=== PATIENT | female | born 1945 | race Caucasian/White ===

== ENCOUNTER → 2017-07-21 | Outpatient (CLI) | payer OTHER ==
[~2017-07-21] VITALS: Ht 162.6 cm; Wt 60.8 kg
[2017-07-21] VITALS (10 sets, daily range): BP systolic 119–165; BP diastolic 57–93
[~2017-07-21] MED LIST: CARDIZEM CD120 MG PO; CARVEDILOL12.5 MG PO; CEFDINIR300 MG PO; COREG25 M1 PO; COREG6.25 MG PO; COUMADIN 1MG TAB1 M1 PO; COUMADIN 3 MG TA3 M1 PO; HYDROCHLOROTH12.5 M1 PO; KEFLEX500 MG PO; LISINOPRIL20 MG PO; MEDROLDOSEPACK PO; NORVASC5 MG PO; PLAVIX 300 MG300 M1 PO; PREDNISONE 10 M10 M1 PO
[2017-07-21 08:41] LABS: HEMATOCRIT 42.4 % (37.0-47.0); HEMOGLOBIN 14.6 gm/dL (12.0-15.0); MCH 31.9 pg (26.0-34.0); MCHC 34.3 g/dL (28.0-37.0); MCV 92.9 fL (80.0-100.0); MPV 9.9 fl. (7.2-11.1); RBC 4.57 mil/uL (4.20-5.00); RDW-CV 15.9 % (10.5-14.5); WBC 5.9 thou/uL (4.0-11.0)
[2017-07-21 08:42] LABS: APTT 31.3 Seconds (25.0-31.3); INR 1.5; PROTIME 14.6 Seconds (9.20-11.50)
--- NOTE | 2017-08-13 16:03 | S ---
[place] [address] SURGICAL PATH RPT PROCEDURE Name: JUAN DIEGO DARBY Room: [facility]#: [id number] Admission: 07/21/17 Date of : 49 Discharge: Report #: [id number] Path Case #: [id number] PATHOLOGY REPORT COLLECTION DATE: 07/21/2017 RECEIVED DATE: 07/21/2017 SUBMITTING PHYS: Dr. Sebastian Finley OTHER PHYS: LILI Hammond Dr., Dr. ADDENDUM REPORT (Order Date: 07/28/2017 00:00) ADDENDUM COMMENT: Please see next page for scanned image of report submitted by [facility] marine consultant pathologist, Rickie Burciaga M.D. (TANVI:riri; d/t: 08/13/2017) ELECTRONICALLY SIGNED BY: Edson Lee M.D. DATE/TIME:08/13/2017 16:03 SPECIMEN(S) RECEIVED: A.Liver biopsy * * * * * * * * * * * * FINAL DIAGNOSIS: Liver biopsy: - Benign liver with minimal macrovesicular steatosis (less than 5%), cirrhosis and prominent portal and lobular chronic inflammation. See comment. COMMENT: The biopsies show benign liver with prominent inflammation predominantly within portal tracts and also with periportal and lobular activity. The inflammation consists of predominantly lymphocytes with a few eosinophils. No granulomas and minimal numbers of plasma cells are seen. Focal ductular proliferation is also noted. Properly controlled special stains performed on both A1 and A2 show essentially identical findings in both as follows: Iron - No stainable increase PAS with and without diastase - No globules Reticulin - Hepatic plates intact; supports cirrhosis Trichrome - Bridging fibrosis/cirrhosis. This case will be forwarded to the [facility], Department of Hepatopathology for further assessment and an addendum report will be issued. (TANVI:db; 07/22/2017) [place] [address] SURGICAL PATH RPT PROCEDURE Name: JUAN DIEGO DARBY Room: [facility]#: [id number] Admission: 07/21/17 Date of : 49 Discharge: Report #: [id number] Path Case #: [id number] PATHOLOGIST: Edson Lee M.D. REPORT ELECTRONICALLY SIGNED BY: Edson Lee M.D. DATE/TIME: 07/22/2017 12:51 * * * * * * * * * * * * GROSS PATHOLOGY: The specimen is received in formalin, labeled "Juan Diego Darby, liver biopsy," and consists of 6 needle cores of mix-brown tissue measuring between 1.5 cm to 2.0 cm in length and 0.1 cm in diameter. They are entirely submitted in cassettes A1-A2. (SDY; 07/21/2017) CLINICAL HISTORY: Elevated LFT's, cirrhosis INITIAL CPT CODE(S): A; 89417, 56526, 56051, 65946, 62735, 07225, 69203, 98209, 12302, 86975, 65647 Professional services performed by [facility] at [address] [address] Technical services performed by [facility] at [address] [place] [address], [address], [place] [address]. [facility] [address] [place] [address] PHONE: [phone] DIRECTOR: Darryl Sargent M.D. * * * END OF REPORT * * *
== END | disposition home or self-care (01) ==
LOC: M.LAB 07:30 → M.ULTRA 07:41
PROVIDERS: Family Medicine
DX: K74.60 Unspecified cirrhosis of liver (principal); K73.1 Chronic lobular hepatitis, not elsewhere classified; K76.0 Fatty (change of) liver, not elsewhere classified; I10 Essential (primary) hypertension; I48.91 Unspecified atrial fibrillation; Z98.890 Other specified postprocedural states; Z79.899 Other long term (current) drug therapy; Z79.01 Long term (current) use of anticoagulants; Z87.440 Personal history of urinary (tract) infections

== ENCOUNTER 2017-09-23 10:23 | Emergency (ER) | payer OTHER ==
[~2017-09-23] VITALS: Ht 162.6 cm; Wt 55.3 kg
[~2017-09-23 10:23] MED LIST changes: -CEFDINIR300 MG PO; -COUMADIN 1MG TAB1 M1 PO; -MEDROLDOSEPACK PO; -PREDNISONE 10 M10 M1 PO
[2017-09-23] MEDS ORDERED: PREDNISONE 10 M10 M1 PO (10:37)
[2017-09-23] MEDS ORDERED: CEFDINIR300 MG PO (10:37)
[2017-09-23] MEDS ORDERED: MEDROLDOSEPACK PO (10:37)
[2017-09-23 11:12] LABS: ABSOLUTE LYMPHOCYTES 0.9 thou/uL (0.8-5.3); ABSOLUTE MONOCYTES 0.6 thou/uL (0.0-1.2); ABSOLUTE NEUTROPHILS 6.5 thou/uL (1.6-8.1); BASOPHILS 0.5 %; EOSINOPHILS 0.6 %; HEMATOCRIT 41.9 % (37.0-47.0); HEMOGLOBIN 14.4 gm/dL (12.0-15.0); LYMPHOCYTES 10.6 %; MCH 31.9 pg (26.0-34.0); MCHC 34.4 g/dL (28.0-37.0); MCV 92.5 fL (80.0-100.0); MONOCYTES 7.7 %; MPV 8.2 fl. (7.2-11.1); NUCLEATED RBCS 0 /100WBC; PLATELET COUNT* 149 thou/uL (150-400); POLYS 80.6 %; RBC 4.52 mil/uL (4.20-5.00); RDW-CV 15.2 % (10.5-14.5); WBC 8.1 thou/uL (4.0-11.0)
[2017-09-23 11:21] LABS: APTT 52.5 Seconds (25.0-31.3); PROTIME 91.4 Seconds (9.20-11.50)
[2017-09-23 11:23] LABS: INR 9.8
[2017-09-23 11:30] LABS: CALCIUM 8.6 mg/dL (8.5-10.1); CREATININE 0.7 mg/dL (0.6-1.3); POTASSIUM 3.2 mmol/L (3.5-5.1)
[2017-09-23 11:35] LABS: ALBUMIN 3.1 g/dL (3.4-5.0); TOTAL BILIRUBIN 1.5 mg/dL (<0.1-1.0)
[2017-09-23] MEDS ORDERED: COUMADIN 1MG TAB1 M1 PO (11:54)
[2017-09-23 12:15] VITALS: BP 129/82
== END 2017-09-23 12:16 | disposition home or self-care (01) ==
LOC: M.ERS 10:23
PROVIDERS: Nurse Practitioner Family
DX: R79.1 Abnormal coagulation profile (principal); I10 Essential (primary) hypertension; I48.91 Unspecified atrial fibrillation

== ENCOUNTER → 2018-03-15 | Outpatient (CLI) | payer OTHER ==
[~2018-03-15] MED LIST changes: +CEFDINIR300 MG PO; +COUMADIN 1MG TAB1 M1 PO; +MEDROLDOSEPACK PO; +PREDNISONE 10 M10 M1 PO
[2018-03-15 07:55] LABS: INR 1.6; PROTIME 16.2 Seconds (9.20-11.50)
== END ==
LOC: M.ULTRA 03-08 07:30 → M.LAB 07:24 → M.ULTRA 07:24
PROVIDERS: Internal Medicine Gastroenterology
DX: K74.60 Unspecified cirrhosis of liver (principal); I10 Essential (primary) hypertension; I48.91 Unspecified atrial fibrillation

== ENCOUNTER → 2018-03-17 | Outpatient (CLI) | payer OTHER | LOC: M.ULTRA 10:33 | DX: K74.60 Unspecified cirrhosis of liver (principal); I48.91 Unspecified atrial fibrillation; I10 Essential (primary) hypertension ==

== ENCOUNTER → 2018-06-28 | Outpatient (CLI) | payer OTHER ==
[2018-06-28 14:33] LABS: HEMATOCRIT 40.8 % (37.0-47.0); HEMOGLOBIN 13.8 gm/dL (12.0-15.0); MCH 32.6 pg (26.0-34.0); MCV 95.9 fL (80.0-100.0); MPV 9.3 fl. (7.2-11.1); NUCLEATED RBCS 0 /100WBC; PLATELET COUNT* 98 thou/uL (150-400); RBC 4.25 mil/uL (4.20-5.00); RDW-CV 15.8 % (10.5-14.5); WBC 5.5 thou/uL (4.0-11.0)
[2018-06-28 14:50] LABS: ABSOLUTE BASOPHILS 0.1 thou/uL (0.0-0.2); ABSOLUTE EOSINOPHILS 0.1 thou/uL (0.0-0.7); ABSOLUTE LYMPHOCYTES 1.6 thou/uL (0.8-5.3); ABSOLUTE MONOCYTES 0.5 thou/uL (0.0-1.2); ABSOLUTE NEUTROPHILS 3.2 thou/uL (1.6-8.1); BASOPHILS 1.3 %; EOSINOPHILS 2.7 %; LYMPHOCYTES 28.8 %; MONOCYTES 8.4 %; POLYS 58.8 %
== END ==
LOC: M.LAB 14:08
PROVIDERS: Internal Medicine Cardiovascular Disease
DX: K92.2 Gastrointestinal hemorrhage, unspecified (principal)

== ENCOUNTER 2018-11-12 11:19 | Emergency (ER) | payer OTHER ==
[~2018-11-12] VITALS: Ht 160 cm; Wt 49.4 kg
[2018-11-12] MEDS ORDERED: ELIQUIS2.5 MG PO (11:33)
[2018-11-12] MEDS ORDERED: LASIX 20 MG TAB20 MG PO (11:34)
[2018-11-12] MEDS ORDERED: OMEPRAZOLE40 MG PO (11:34)
[2018-11-12] MEDS ORDERED: SPIRONOLACTONE25 MG PO (11:34)
[2018-11-12] MEDS ORDERED: IRON325 PO (11:35)
[2018-11-12] MEDS ORDERED: XANAX 0.5 MG0.5 MG PO (11:35)
[2018-11-12] MEDS ORDERED: ZINC SULFATE 2220 M1 PO (11:35)
[2018-11-12] MEDS ORDERED: VITAMIN A10000 UNI3 PO (11:36)
[2018-11-12 12:44] LABS: ABSOLUTE EOSINOPHILS 0.1 thou/uL (0.0-0.7); ABSOLUTE LYMPHOCYTES 1.1 thou/uL (0.8-5.3); ABSOLUTE MONOCYTES 0.5 thou/uL (0.0-1.2); ABSOLUTE NEUTROPHILS 2.5 thou/uL (1.6-8.1); BASOPHILS 0.9 %; EOSINOPHILS 2.4 %; HEMATOCRIT 37.4 % (37.0-47.0); HEMOGLOBIN 12.5 gm/dL (12.0-15.0); LYMPHOCYTES 25.7 %; MCH 29.3 pg (26.0-34.0); MCHC 33.4 g/dL (28.0-37.0); MCV 87.6 fL (80.0-100.0); MONOCYTES 11.7 %; MPV 8.7 fl. (7.2-11.1); NUCLEATED RBCS 0 /100WBC; PLATELET COUNT* 116 thou/uL (150-400); POLYS 59.3 %; RBC 4.26 mil/uL (4.20-5.00); RDW-CV 19.8 % (10.5-14.5); WBC 4.2 thou/uL (4.0-11.0)
[2018-11-12 12:54] LABS: ANION GAP 7 mmol/L (7-16); APTT 29.6 Seconds (25.0-31.3); BUN 21 mg/dL (7-18); CALCIUM 9.2 mg/dL (8.5-10.1); CHLORIDE 102 mmol/L (98-107); CO2 25 mmol/L (21-32); CREATININE 1.1 mg/dL (0.6-1.3); GLUCOSE 97 mg/dL (70-99); INR 1.3; POTASSIUM 4.3 mmol/L (3.5-5.1); PROTIME 12.8 Seconds (9.20-11.50); SODIUM 134 mmol/L (136-145)
[2018-11-12 13:05] LABS: ALBUMIN 3.2 g/dL (3.4-5.0); ALKALINE PHOSPHATASE 182 U/L (46-116); LIPASE 214 U/L (73-393); MAGNESIUM 1.8 mg/dL (1.8-2.4); SGOT 62 U/L (15-37); SGPT 55 U/L (30-65); TOTAL PROTEIN 7.5 g/dL (6.4-8.2); TROPONIN-I LEVEL <0.06 ng/mL (<0.06)
[2018-11-12 14:14] LABS: URINE BILIRUBIN NEGATIVE (Negative); URINE BLOOD NEGATIVE (Negative); URINE CLARITY CLEAR; URINE COLOR YELLOW; URINE GLUCOSE-RANDOM NEGATIVE (Negative); URINE KETONES NEGATIVE (Negative); URINE LEUKOCYTES-REFLEX TRACE (Negative); URINE NITRITE-REFLEX NEGATIVE (Negative); URINE PROTEIN NEGATIVE (Negative); URINE SPECIFIC GRAVITY <= 1.005 (1.005-1.030); URINE UROBILINOGEN 0.2 E.U./dl (0.2-1.0)
[2018-11-12 14:21] LABS: SQUAMOUS >10 Many /LPF (0-3); URINE WBC-REFLEX 0-5 Rare /HPF (0-5)
[2018-11-12 14:22] LABS: BACTERIA-REFLEX >30 Many /HPF (None Seen); CASTS None Seen /LPF (None Seen); CRYSTALS None Seen /LPF (None Seen); URINE RBC None Seen /HPF (0-2)
[2018-11-12 14:41] VITALS: BP 139/73
--- NOTE | 2018-11-12 16:40 | EKG ---
[place] [address] ELECTROCARDIOGRAM REPORT Name: JUAN DIEGO CABA Room: [facility]#: [id number] Admission: 11/12/18 Attend Phys: Discharge: 11/12/18 Date of : 49 Report #: [id number] THIS REPORT FOR: //name// [facility] ED Test Date: 2018-11-12 Test Time: 12:35:07 Pat Name: JUAN DIEGO CABA Department: Room: Gender: F Manager Package: OSMAR : 1945 Requested By: Constantin Dodd Order Number: [id number] MD: Christopher Ribeiro Measurements Intervals [place] Rate: 87 P: [place]: QRS: 58 QRSD: 80 T: -36 QT: 380 QTc: 457 Interpretive Statements Atrial fibrillation Nonspecific T abnormalities, inferior leads Compared to ECG 05/20/2017 10:15:30 Possible ischemia no longer present T-wave abnormality still present Electronically Signed On 11-12-2018 16:40:17 CDT by Christopher Ribeiro [email or web address] <ELECTRONICALLY SIGNED> By: Christopher Ribeiro MD, [facility] 11/12/18 1640 [facility]5 1235 Christopher Ribeiro MD, [facility] /EPI
== END 2018-11-12 14:42 | disposition home or self-care (01) ==
LOC: M.ERS 11:19
PROVIDERS: Nurse Practitioner Psychiatric/Mental Health
DX: R51 Headache (principal); R53.1 Weakness; D69.6 Thrombocytopenia, unspecified; I48.91 Unspecified atrial fibrillation; I10 Essential (primary) hypertension; Z85.05 Personal history of malignant neoplasm of liver; R42 Dizziness and giddiness

== ENCOUNTER → 2019-08-22 | Outpatient (CLI) | payer OTHER ==
[~2019-08-22] MED LIST changes: +ELIQUIS2.5 MG PO; +IRON325 PO; +LASIX 20 MG TAB20 MG PO; +OMEPRAZOLE40 MG PO; +SPIRONOLACTONE25 MG PO; +VITAMIN A10000 UNI3 PO; +XANAX 0.5 MG0.5 MG PO; +ZINC SULFATE 2220 M1 PO
--- NOTE | 2019-08-22 11:27 | 2DMMODE ---
[place] [address] 2 D/M-MODE ECHOCARDIOGRAM Name: JUAN DIEGO CABA Room: [facility]#: [id number] Admission: 08/22/19 Attend Phys: Avelino Vargas Discharge: Date of : 49 Date of Service: 08/22/19 1126 Report #: [id number] THIS REPORT FOR: cc: Nawaf Rhodes Bradley L. DO Blick, David R. MD [facility] ~ APPROVED REPORT Study performed: 08/22/2019 09:48:19 EXAM: Comprehensive 2D, Doppler, and color-flow Echocardiogram Patient Location: Out-Patient BSA: 1.55 HR: 72 bpm BP: 140/80 mmHg Other Information Study Quality: Excellent Indications Atrial Fibrillation Hypertension/HDD 2D Dimensions IVSd: 13.49 (7-11mm) LVOT Diam: 17.98 (18-24mm) LVDd: 31.63 mm PWd: 13.24 (7-11mm) Ascending Ao: 28.84 (22-36mm) LVDs: 20.72 (25-40mm) Aortic Root: 23.02 mm Volumes Left Atrial Volume (Systole) LA ESV Index: 45.20 mL/m2 Aortic Valve AoV Peak Mathieu.: 1.17 m/s AO Peak Gr.: 5.51 mmHg LVOT Max P.91 mmHg AO Mean Gr.: 2.79 mmHg LVOT Mean P.88 mmHg LVOT Max V: 0.69 m/s AO V2 VTI: 20.78 cm LVOT Mean V: 0.43 m/s ANA (VTI): 1.57 cm2 LVOT V1 VTI: 12.89 [place] [address] 2 D/M-MODE ECHOCARDIOGRAM Name: JUAN DIEGO CABA Room: [facility]#: [id number] Admission: 08/22/19 Attend Phys: Avelino Vargas Discharge: Date of : 49 Date of Service: 08/22/19 1126 Report #: [id number] MV Decel. Time: 195.34 ms MV PHT: 56.65 ms MVA (PHT): 3.88 cm2 TDI Medial E' Matheiu.: 0.10 m/s Lateral E' Mathieu.: 0.09 m/s Pulmonary Valve PV Peak Mathieu.: 0.76 m/s PV Peak Gr.: 2.32 mmHg Tricuspid Valve RAP Estimate: 5.00 mmHg TR Peak Gr.: 21.87 mmHg RVSP: 26.87 mmHg PA Pressure: 26.87 mmHg Left Ventricle The left ventricle is normal size. There is normal LV segmental wall motion. Mild concentric left ventricular hypertrophy. Left ventricular systolic function is normal. The left ventricular ejection fraction is within the normal range. LVEF is 55-60%. This study is not technically sufficient to allow evaluation of the LV diastolic function due to atrial fibrillation. Right Ventricle The right ventricle is normal size. The right ventricular systolic function is normal. Atria Left atrium is moderately dilated. Right atrium is mildly dilated. Aortic Valve The aortic valve is normal in structure. No aortic regurgitation is present. There is no aortic valvular stenosis. Mitral Valve The mitral valve is normal in structure. Mild mitral regurgitation. No evidence of mitral valve stenosis. Tricuspid Valve The tricuspid valve is normal in structure. Mild tricuspid regurgitation. estimated pa pressure 30 mm Hg Pulmonic Valve The pulmonary valve is normal in structure. [place] [address] 2 D/M-MODE ECHOCARDIOGRAM Name: JUAN DIEGO CABA Room: [facility]#: [id number] Admission: 08/22/19 Attend Phys: Avelino Vargas Discharge: Date of : 49 Date of Service: 08/22/19 1126 Report #: [id number] valvular regurgitation. Great Vessels The aortic root is normal in size. IVC is normal in size and collapses >50% with inspiration. Pericardium There is no pericardial effusion. <Conclusion> Mild concentric left ventricular hypertrophy. LVEF is 55-60%. Left atrium is moderately dilated. Right atrium is mildly dilated. Mild mitral regurgitation. <ELECTRONICALLY SIGNED> By: Christopher Ribeiro MD, FACC 08/22/19 1126 1126 1126 Christopher Ribeior MD, FAC /INF
== END ==
LOC: M.CRD 09:45
DX: I08.1 Rheumatic disorders of both mitral and tricuspid valves (principal); I11.9 Hypertensive heart disease without heart failure; I48.19 Other persistent atrial fibrillation

== ENCOUNTER → 2020-09-25 | Outpatient (CLI) | payer OTHER ==
--- NOTE | 2020-09-25 15:41 | 2DMMODE ---
[place] [address] 2 D/M-MODE ECHOCARDIOGRAM Name: JUAN DIEGO CABA Room: [facility]#: [id number] Admission: 09/25/20 Attend Phys: Avelino Vargas Discharge: Date of : 49 Date of Service: 09/25/20 1541 Report #: [id number] THIS REPORT FOR: cc: Nawaf Rhodes Bradley L. DO [place], Michael J. MD [facility] ~ APPROVED REPORT Study performed: 09/25/2020 09:24:41 EXAM: Comprehensive 2D, Doppler, and color-flow Echocardiogram Patient Location: Out-Patient BSA: 1.63 HR: 63 bpm BP: 148/82 mmHg Other Information Study Quality: Good Indications Atrial Fibrillation 2D Dimensions IVSd: 11.47 (7-11mm) LVOT Diam: 20.67 (18-24mm) LVDd: 41.49 mm PWd: 10.48 (7-11mm) Ascending Ao: 26.23 (22-36mm) LVDs: 23.89 (25-40mm) Aortic Root: 25.29 mm Volumes Left Atrial Volume (Systole) LA ESV Index: 55.50 mL/m2 Aortic Valve AoV Peak Mathieu.: 1.61 m/s AO Peak Gr.: 10.31 mmHg LVOT Max P.39 mmHg AO Mean Gr.: 5.77 mmHg LVOT Mean P.62 mmHg LVOT Max V: 0.92 m/s AO V2 VTI: 35.55 cm LVOT Mean V: 0.58 m/s ANA (VTI): 2.24 cm2 LVOT V1 VTI: 23.72 cm Mitral Valve MV Decel. Time: 235.31 [place] [address] 2 D/M-MODE ECHOCARDIOGRAM Name: JUAN DIEGO CABA Room: [facility]#: [id number] Admission: 09/25/20 Attend Phys: Avelino Vargas Discharge: Date of : 49 Date of Service: 09/25/20 1541 Report #: [id number] MV PHT: 68.24 ms MVA (PHT): 3.22 cm2 TDI Medial E' Mathieu.: 0.10 m/s Lateral E' Mathieu.: 0.11 m/s Pulmonary Valve PV Peak Mathieu.: 0.93 m/s PV Peak Gr.: 3.49 mmHg Tricuspid Valve RAP Estimate: 5.00 mmHg TR Peak Gr.: 35.45 mmHg RVSP: 40.45 mmHg PA Pressure: 40.45 mmHg Left Ventricle The left ventricle is normal size. There is normal LV segmental wall motion. There is normal left ventricular wall thickness. Left ventricular systolic function is normal. LVEF is 55-60%. This study is not technically sufficient to allow evaluation of the LV diastolic function due to atrial fibrillation. Right Ventricle The right ventricle is normal size. The right ventricular systolic function is normal. Atria Left atrium is moderately dilated. Right atrium is moderately dilated. Aortic Valve The aortic valve is normal in structure. No aortic regurgitation is present. There is no aortic valvular stenosis. Mitral Valve The mitral valve is normal in structure. Mild mitral regurgitation. No evidence of mitral valve stenosis. Tricuspid Valve The tricuspid valve is normal in structure. Mild tricuspid regurgitation. The RVSP is 30-35 mmHg. Pulmonic Valve The pulmonary valve is normal in structure. [place] [address] 2 D/M-MODE ECHOCARDIOGRAM Name: JUAN DIEGO CABA [id number] Admission: 09/25/20 Attend Phys: Avelino Vargas Discharge: Date of : 49 Date of Service: 09/25/20 1541 Report #: [id number] Great Vessels The aortic root is normal in size. IVC is normal in size and collapses >50% with inspiration. Pericardium There is no pericardial effusion. <Conclusion> The left ventricle is normal size. There is normal left ventricular wall thickness. Left ventricular systolic function is normal. LVEF is 55-60%. This study is not technically sufficient to allow evaluation of the LV diastolic function due to atrial fibrillation. Left atrium is moderately dilated. Right atrium is moderately dilated. Mild mitral regurgitation. Mild tricuspid regurgitation. The RVSP is 30-35 mmHg. Mild pulmonic regurgitation. IVC is normal in size and collapses >50% with inspiration. <ELECTRONICALLY SIGNED> By: Rickie Yin MD, FACC 09/25/20 1541 [id number] Rickie Yin MD, FACC /INF
== END ==
LOC: M.CRD 09:34
PROVIDERS: ATTEND Internal Medicine
DX: I08.8 Other rheumatic multiple valve diseases (principal); I48.21 Permanent atrial fibrillation; I10 Essential (primary) hypertension